=== PATIENT | female | born 1995 | race African-American/Black ===

== ENCOUNTER 2018-09-06 18:29 | Emergency (ER) | payer MEDICAID ==
[~2018-09-06] VITALS: Ht 167.6 cm; Wt 100.0 kg
[2018-09-06 18:31] VITALS: Ht 167.6 cm; Wt 100.0 kg
[2018-09-06 19:31] LABS: HEMATOCRIT 62.7 % (36.0-48.0); HEMOGLOBIN 12.4 g/dL (12-16); MCH 27.3 pg (26.0-34.0); MCV 137.8 fL (80.0-100.0); PLATELET COUNT 251 10x3/uL (130-400); RBC 4.55 10x6/uL (4.00-5.40); RDW 16.9 % (11.5-14.5); WBC 8.2 10x3/uL (4.8-10.8)
[2018-09-06 19:32] LABS: MCHC 19.8 g/dL (31.0-37.0)
[2018-09-06 19:51] LABS: BASOPHILS 2 % (0-2); EOSINOPHILS 18 % (0-7); LYMPHOCYTES 33 % (15-50); MONOCYTES 4 % (2-11); NEUTROPHILS 43 % (40-80)
[2018-09-06 19:52] LABS: PLATELET ESTIMATE NORMAL
[2018-09-06 19:53] LABS: TARGET CELLS OCC; TEAR DROP CELLS OCC
[2018-09-06 19:54] LABS: ROULEAUX OCC
[2018-09-06 20:02] LABS: ALBUMIN 3.8 g/dL (3.4-5.0); ANION GAP 17.3 mmol/L (8-16); BILIRUBIN - TOTAL 0.29 mg/dL (0.2-1.3); CALCIUM 8.9 mg/dL (8.5-10.1); CARBON DIOXIDE 22.7 mmol/L (21.0-32.0); CREATININE - SERUM 1.1 mg/dL (0.6-1.3); PROTEIN - SERUM 7.6 g/dL (6.4-8.2)
[2018-09-06 20:18] LABS: APPEARANCE CLEAR (CLEAR); COLOR YELLOW (YELLOW)
[2018-09-06 20:19] LABS: BILIRUBIN NEGATIVE (NEGATIVE); GLUCOSE NEGATIVE (NEGATIVE); KETONE NEGATIVE (NEGATIVE); NITRITE NEGATIVE (NEGATIVE); PROTEIN TRACE mg/dL (NEGATIVE); UROBILINOGEN NORMAL (NORMAL)
[2018-09-06 20:23] LABS: BACTERIA FEW /hpf (NONE SEEN); EPITHELIAL CELLS 0-5 /hpf (0-5); HCG URINE NEGATIVE (NEGATIVE); RED CELLS - URINE 0-5 /hpf (0-5); WHITE CELLS - URINE 0-5 /hpf (0-5)
[2018-09-06] MEDS ORDERED: DICLOFENAC SODI50 MG PO (21:09)
[2018-09-06] MEDS ORDERED: ZOFRAN ODT4 MG/UDTAB PO (21:09)
[2018-09-06 21:45] VITALS: BP 132/84
== END 2018-09-06 21:45 | disposition home or self-care (01) ==
LOC: D.ER 18:29
PROVIDERS: Emergency Medicine
DX: R10.9 Unspecified abdominal pain (principal); F17.210 Nicotine dependence, cigarettes, uncomplicated

== ENCOUNTER 2018-12-19 06:24 | Emergency (ER) | payer MEDICAID ==
[~2018-12-19] VITALS: Ht 167.6 cm; Wt 102.3 kg
[~2018-12-19 06:24] MED LIST: DICLOFENAC SODI50 MG PO; ZOFRAN ODT4 MG/UDTAB PO
[2018-12-19 06:28] VITALS: Ht 167.6 cm; Wt 102.3 kg
[2018-12-19 07:15] LABS: BASOPHILS 0.6 % (0-2); HEMATOCRIT 34.1 % (36.0-48.0); HEMOGLOBIN 11.4 g/dL (12-16); IMMATURE GRANULOCYTES 0.1 % (0-5); MCH 27.8 pg (26.0-34.0); MCHC 33.4 g/dL (31.0-37.0); MCV 83.2 fL (80.0-100.0); MEAN PLATELET VOLUME 8.3 fL (7.4-10.4); MONOCYTES 5.5 % (2-11); NEUTROPHILS 56.8 % (40-80); RDW 14.3 % (11.5-14.5)
[2018-12-19 07:17] LABS: PLATELET COUNT 376 10x3/uL (130-400)
[2018-12-19 07:34] VITALS: BP 120/64
[2018-12-19 07:40] LABS: ALBUMIN 3.4 g/dL (3.4-5.0); ALKALINE PHOSPHATASE 81 U/L (46-116); ALT (SGPT) 92 U/L (10-68); BILIRUBIN - TOTAL 0.63 mg/dL (0.2-1.3); CALC OSMOLALITY 281 mosm/kg (275-300); CALCIUM 8.4 mg/dL (8.5-10.1); CARBON DIOXIDE 23.3 mmol/L (21.0-32.0); CHLORIDE - SERUM 108 mmol/L (98-107); CREATININE - SERUM 0.9 mg/dL (0.6-1.3); GLUCOSE 145 mg/dL (74-106); POTASSIUM - SERUM 3.4 mmol/L (3.5-5.1); PROTEIN - SERUM 7.4 g/dL (6.4-8.2); SODIUM 140 mmol/L (136-145); UREA NITROGEN 12 mg/dL (7-18); eGFR NON AFRICAN AMERICAN 82 mL/min (90-120)
[2018-12-19 07:43] LABS: AMYLASE - SERUM 90 U/L (25-115); LIPASE 262 U/L (73-393); TROPONIN-I < 0.017 ng/mL (0.000-0.060)
[2018-12-19 08:12] LABS: APPEARANCE CLEAR (CLEAR); BILIRUBIN NEGATIVE (NEGATIVE); COLOR YELLOW (YELLOW); GLUCOSE NEGATIVE (NEGATIVE); KETONE NEGATIVE (NEGATIVE); NITRITE NEGATIVE (NEGATIVE); PROTEIN NEGATIVE (NEGATIVE); SPECIFIC GRAVITY 1.015 (1.005-1.020); UROBILINOGEN NORMAL (NORMAL)
[2018-12-19 08:15] LABS: HCG URINE NEGATIVE (NEGATIVE)
[2018-12-19] MEDS ORDERED: CYCLOBENZAPRINE10 MG PO (09:05)
[2018-12-19] MEDS ORDERED: ACETAMINOPHEN500 M1 PO (09:05)
[2018-12-19] MEDS ORDERED: IBUPROFEN800 MG PO (09:05)
== END 2018-12-19 09:13 | disposition home or self-care (01) ==
LOC: D.ER 06:24
PROVIDERS: Family Medicine
DX: K80.80 Other cholelithiasis without obstruction (principal)